=== PATIENT | male | born 1945 | race Caucasian/White ===

== ENCOUNTER 2017-05-17 21:58 | Inpatient (IN) | payer MEDICARE, OTHER ==
[~2017-05-17] VITALS: Ht 182.9 cm; Wt 79.5 kg
[2017-05-17] VITALS (10 sets, daily range): BP systolic 84–109; BP diastolic 52–78; PULSE 52–120; RESP 20–28; TEMP 95–95.7; O2SAT 91–100
[~2017-05-17 21:58] MED LIST: ACET325S8 PO; AUGM875T PO
[2017-05-17] MEDS ORDERED: SODIUM CHLOR 0.9% 1000 ML INJ 1,000 ML IV ONE (22:03)
[2017-05-17] MEDS ORDERED: NITROGLYCERIN 0.4 MG SL 25 TABS/BTL SL STA (22:03)
[2017-05-17] MEDS ORDERED: HEPARIN SODIUM - IV 10,000 UNITS/10 ML VIAL IV PUSH STA (22:03)
[2017-05-17] MEDS ORDERED: NITROGLYCERIN-D5W 50 MG/250 ML 250 ML IV PRN (22:15)
[2017-05-17] MEDS ORDERED: SODIUM CHLORIDE 0.9% FLUSH 10 ML FLUSH IVF PRN ×3 (22:15→22:30)
[2017-05-17] MEDS ORDERED: ASPIRIN 300 MG SUPP RECTAL ONE (22:15)
[2017-05-17] MEDS ORDERED: AMIODARONE INJ 150 MG in DEXTROSE 5% IN WATER 100ML INJ 100 ML IV ONE ×2 (22:23)
[2017-05-17 22:26] LABS: AUTOMATED NEUTROPHIL # 4.5 TH/MM3 (1.8-7.7); BASOPHIL # 0.1 TH/MM3 (0-0.2); BASOPHIL % 1.1 % (0.0-2.0); EOSINOPHIL % 0.5 % (0.0-4.0); HEMATOCRIT 38.5 % (39.0-51.0); LYMPH % 35.5 % (9.0-44.0); LYMPHOCYTE # 2.8 TH/MM3 (1.0-4.8); MEAN CELL VOLUME 95.1 FL (80.0-100.0); MEAN CORPUSCULAR HEMOGLOBIN 31.1 PG (27.0-34.0); MEAN CORPUSCULAR HGB CONC 32.7 % (32.0-36.0); MONO % 5.9 % (0.0-8.0); PLATELET COUNT 208 TH/MM3 (150-450); RED BLOOD COUNT 4.05 MIL/MM3 (4.50-5.90); WHITE BLOOD COUNT 7.9 TH/MM3 (4.0-11.0)
[2017-05-17 22:28] LABS: HEMO FLAGS AUTO DIFF
[2017-05-17] MEDS ORDERED: AMIODARONE INJ 450 MG in DEXTROSE 5% IN WATE(EXCEL) INJ 241 ML IV SCH ×2 (22:29)
[2017-05-17] MEDS ORDERED: LORazepam 2 MG/ML VIAL IV PUSH PRN (22:30)
[2017-05-17] MEDS ORDERED: RESP: ALBUTEROL 2.5 MG/IPRATROPIUM 0.5 MG NEB (PRN) INH (22:30)
[2017-05-17] MEDS ORDERED: MISCELLANEOUS NURSING INFORMATION XX SCH (22:30)
[2017-05-17] MEDS ORDERED: SODIUM CHLORIDE 0.9% FLUSH 10 ML FLUSH IV FLUSH PRN (22:30)
[2017-05-17] MEDS ORDERED: ONDANSETRON HCL 4 MG/2 ML VIAL IV PUSH PRN (22:30)
[2017-05-17] MEDS ORDERED: BISACODYL 10 MG SUPP RECTAL PRN (22:30)
[2017-05-17] MEDS ORDERED: LACTULOSE SYRUP 20 GM/30 ML CUP PO PRN (22:30)
[2017-05-17] MEDS ORDERED: ACETAMINOPHEN 325 MG TAB PO PRN (22:30)
[2017-05-17] MEDS ORDERED: MAGNESIUM HYDROXIDE SUSP 30 ML CUP PO PRN (22:30)
[2017-05-17] MEDS ORDERED: SENNOSIDES 8.6 MG TAB PO PRN (22:30)
[2017-05-17] MEDS ORDERED: CHLORHEXIDINE GLUCONATE 2 % 1 PACK (2 CLOTHS) TOP PRN (22:30)
--- NOTE | 2017-05-17 22:31 | HHI.HP ---
HPI Service Critical Care Medicine Primary Care Physician Unknown Admission Diagnosis Post Code, Vfib arrest Diagnosis: Travel History International Travel<30 Days: No Contact w/Intl Traveler <30 Da: No Traveled to Known Affected Are: No History of Present Illness 72 year old male who presents with a history of having a witnessed collapse. The patient was witnessed by a friend to collapse. He had been complaining of indigestion prior to this according to ambulance services. The patient's only known history according to ambulance services consists of COPD. Upon ambulance arrival the patient was noted to be in ventricular fibrillation. He was defibrillated twice, 300 mg of amiodarone was administered, epinephrine 1 mg IV was administered in 5 separate doses, and the patient was also given 1 amp of bicarbonate. The patient had a return of spontaneous circulation. With a blood pressure in the 60s systolic. The patient was started on a dopamine drip. The patient was intubated with a 7-1/2 endotracheal tube prior to arrival. The patient was noted to be starting to breathe above his assisted breathing as he arrives to the emergency department. During my examination patient had no purposeful movements, only myoclonic jerks suggesting severe anoxic brain injury. Due to poor neurological exam the decision was made to start post cardiac arrest therapeutic hypothermia. Shortly after placement cooling Catheter patients suffered another episode of ventricular tachycardia. At that time patient's nephew at the bedside talked over the phone to the patient's estranged son who designated him and his mother is a decision-maker. The patient's nephew and his mom was the patient's sister has expressed their wishes to proceed with a DNR order. Due to DNR status the hypothermia protocol was consult and the DNR order was placed on the chart. Review of Systems ROS Unable to obtain patient is comatose and intubated Past Family Social History Allergies: Coded Allergies: iodine (Unverified Allergy, Severe, ANAPHYLAXIS, 05/17/17) potassium iodide (Unverified Allergy, Severe, ANAPHYLAXIS, 05/17/17) povidone-iodine (Unverified Allergy, Severe, ANAPHYLAXIS, 05/17/17) sodium iodide (Unverified Allergy, Severe, ANAPHYLAXIS, 05/17/17) sodium iodide (Unverified Allergy, Severe, ANAPHYLAXIS, 05/17/17) Past Medical History Unobtainable Past Surgical History Unobtainable Reported Medications Unobtainable Active Ordered Medications Current Medications Medications (Trade) Dose Ordered Sig/Hui Route PRN Reason Start Time Stop Time Status Last Admin Dose Admin Nitroglycerin/ Dextrose 250 ml @ 3 mls/hr TITRATE PRN IV for angina or ST elevation 05/17/17 22:15 Amiodarone HCl 450 mg/Dextrose 250 ml @ 33.33 mls/ hr Q7H31M PRN IV Per Protocol 05/17/17 22:33 Sodium Chloride 1,000 ml @ 124 mls/hr Q8H4M IV 05/17/17 23:00 Sodium Chloride (NS Flush) 2 ml UNSCH PRN IV FLUSH FLUSH AFTER USING IV ACCESS 05/17/17 22:30 Sodium Chloride (NS Flush) 2 ml BID IV FLUSH 05/18/17 09:00 Acetaminophen (Tylenol) 650 mg Q6H PRN PO PAIN 1-10 AND/OR FEVER >101F 05/17/17 22:30 Pantoprazole Sodium (Protonix Inj) 40 mg DAILY IV PUSH 05/18/17 09:00 Lorazepam (Ativan Inj) 1 mg Q1H PRN IV PUSH Agitation/Sedation 05/17/17 22:30 Artificial Tears (Tears Naturale Opth Soln) 1 drop TID EACH EYE 05/18/17 09:00 Ondansetron HCl (Zofran Inj) 4 mg Q6H PRN IV PUSH NAUSEA OR VOMITING 05/17/17 22:30 Albuterol/ Ipratropium (Duoneb Neb) 1 ampule Q6HR NEB INH 05/18/17 04:00 Albuterol/ Ipratropium (Duoneb Neb) 1 ampule Q2HR NEB PRN INH WHEEZING 05/17/17 22:30 Miscellaneous Information 1 Q361D XX 05/17/17 22:30 Chlorhexidine Gluconate (Chlorhexidine 2% Cloth) 3 pack Taper DAILY@04 TOP 05/18/17 04:00 05/14/18 03:59 Chlorhexidine Gluconate (Chlorhexidine 2% Cloth) 3 pack UNSCH PRN TOP HYGIENIC CARE 05/17/17 22:30 Senna/Docusate Sodium (Maribel-Colace) 1 tab BID PO 05/18/17 09:00 Magnesium Hydroxide (Milk Of Magnesia Liq) 30 ml Q12H PRN PO Mild constipation 05/17/17 22:30 Sennosides (Senokot) 17.2 mg Q12H PRN PO Moderate constipation 05/17/17 22:30 Bisacodyl (Dulcolax Supp) 10 mg DAILY PRN RECTAL SEVERE CONSITIPATION 05/17/17 22:30 Lactulose (Lactulose Liq) 30 ml DAILY PRN PO SEVERE CONSITIPATION 05/17/17 22:30 Chlorhexidine Gluconate (Peridex 0.12% Liq) 15 ml BID@08,20 MT 05/18/17 08:00 Midazolam HCl 100 ml @ 2 mls/hr TITRATE PRN IV SEDATION 05/17/17 22:30 05/17/17 22:46 Fentanyl Citrate 250 ml @ 5 mls/hr TITRATE PRN IV SEDATION 05/17/17 22:30 05/17/17 22:45 Heparin Sodium (Porcine) (Heparin Inj) 5,000 units UNSCH PRN IV PUSH APTT LESS THAN 25 05/18/17 05:30 Heparin Sodium (Porcine) (Heparin Inj) 2,500 units UNSCH PRN IV PUSH APTT 25 TO 39 05/18/17 05:30 Heparin Sodium/ Dextrose 250 ml @ 9 mls/hr TITRATE PRN IV Coagulation Management 05/17/17 23:30 05/18/17 00:32 Family History Unobtainable Social History Patient has 2 estranged children, he lives in [facility] close to his sister and her son. Unknown history of smoking, alcohol or illicit drug abuse Physical Exam Vital Signs Vital Signs Date Time Temp Pulse Resp B/P (MAP) Pulse Ox O2 Delivery O2 Flow Rate FiO2 05/17/17 22:22 95.0 117 20 98/67 (77) 100 Ventilator 100 05/17/17 22:22 100 24 100 Ventilator 100 05/17/17 22:13 20 100 Ventilator 100 05/17/17 22:12 100 Ventilator 100 05/17/17 22:06 52 20 84/52 (63) 100 Physical Exam GENERAL: Elderly-appearing male, sedated and intubated. SKIN: Warm and dry. HEAD: Normocephalic. EYES: No scleral icterus. No injection or drainage. NECK: Supple, trachea midline. No JVD or lymphadenopathy. CARDIOVASCULAR: Regular rate and rhythm without murmurs, gallops, or rubs. RESPIRATORY: Breath sounds equal bilaterally. No accessory muscle use. GASTROINTESTINAL: Abdomen soft, non-tender, nondistended. MUSCULOSKELETAL: No cyanosis, or edema. BACK: Nontender without obvious deformity. NEURO EXAM: GCS: 3 Mental Status: The patient is intermittently jerking on examination his upper extremities in a nonpurposeful way. Patient has a GCS of 3 Laboratory Laboratory Tests Test 05/17/17 22:05 05/17/17 22:25 White Blood Count 7.9 Red Blood Count 4.05 Hemoglobin 12.6 Hematocrit 38.5 Mean Corpuscular Volume 95.1 Mean Corpuscular Hemoglobin 31.1 Mean Corpuscular Hemoglobin Concent 32.7 Red Cell Distribution Width 14.0 Platelet Count 208 Mean Platelet Volume 7.8 Neutrophils (%) (Auto) 57.0 Lymphocytes (%) (Auto) 35.5 Monocytes (%) (Auto) 5.9 Eosinophils (%) (Auto) 0.5 Basophils (%) (Auto) 1.1 Neutrophils # (Auto) 4.5 Lymphocytes # (Auto) 2.8 Monocytes # (Auto) 0.5 Eosinophils # (Auto) 0.0 Basophils # (Auto) 0.1 CBC Comment AUTO DIFF Result Diagram: 05/17/172204 Imaging Last [address] 05/17/172213 Signed Impressions: Service Date/Time: Wednesday, May 17, 2017 22:59 - CONCLUSION: 1. No acute intracranial abnormality. 2. 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 Rod Clinton MD Chest X-Ray 05/17/172202 Signed Impressions: Service Date/Time: Wednesday, May 17, 2017 22:21 - CONCLUSION: 1. Interval intubation and placement of nasogastric tube. 2. The heart size remains at the upper limits of normal with no acute cardiac pulmonary disease. 3. The study is degraded by motion artifact. MD Diana Gillespiei VTE Risk Assessment Caprini VTE Risk Assessment: Mod/High Risk (score >= 2) Caprini Risk Assessment Model Point Value = 1 Point Value = 2 Point Value = 3 Point Value = 5 Age 41-60 Minor surgery BMI > 25 kg/m2 Swollen legs Varicose veins or History of unexplained or recurrent spontaneous Oral contraceptives or hormone replacement Sepsis (< 1 month) Serious lung disease, including pneumonia (< 1 month) Abnormal pulmonary function Acute myocardial infarction Congestive heart failure (< 1 month) History of inflammatory bowel disease Medical patient at bed rest Age 61-74 Arthroscopic surgery Major open surgery (> 45 min) Laparoscopic surgery (> 45 min) Malignancy Confined to bed (> 72 hours) Immobilizing plaster cast Central venous access Age >= 75 History of VTE Family history of VTE Factor V Leiden Prothrombin [id number] Lupus anticoagulant Anticardiolipin antibodies Elevated serum homocysteine Heparin-induced thrombocytopenia Other congenital or acquired thrombophilia Stroke (< 1 month) Elective arthroplasty Hip, pelvis, or leg fracture Acute spinal cord injury (< 1 month) Prophylaxis Regimen Total Risk Factor Score Risk Level Prophylaxis Regimen 0-1 Low Early ambulation 2 Moderate Order ONE of the following: *Sequential Compression Device (SCD) *Heparin 5000 units SQ BID 3-4 Higher Order ONE of the following medications: *Heparin 5000 units SQ TID *Enoxaparin/Lovenox 40 mg SQ daily (WT < 150 kg, CrCl > 30 mL/min) *Enoxaparin/Lovenox 30 mg SQ daily (WT < 150 kg, CrCl > 10-29 mL/min) *Enoxaparin/Lovenox 30 mg SQ BID (WT < 150 kg, CrCl > 30 mL/min) AND/OR *Sequential Compression Device (SCD) 5 or more Highest Order ONE of the following medications: *Heparin 5000 units SQ TID (Preferred with Epidurals) *Enoxaparin/Lovenox 40 mg SQ daily (WT < 150 kg, CrCl > 30 mL/min) *Enoxaparin/Lovenox 30 mg SQ daily (WT < 150 kg, CrCl > 10-29 mL/min) *Enoxaparin/Lovenox 30 mg SQ BID (WT < 150 kg, CrCl > 30 mL/min) AND *Sequential Compression Device (SCD) Assessment and Plan Assessment and Plan Respiratory failure - Intubated for an airway protection - No weaning until neurologically improved - No SBT's - Vent bundle - DuoNeb scheduled and when necessary Cardiac arrest - V. fib arrest - No hypothermia protocol due to DNR status - Cardiology following Dr. Lyons - Amiodarone drip and heparin drip Altered mental status - Most likely severe anoxic brain injury - EEG morning - Neurology consult - Supportive care DVT GI prophylaxis - Teds SCDs - Heparin drip - Pepcid Critical Care: The total critical care time was 35 minutes. Time to perform other separately billable procedures was not included in the critical care time. Cabrera Ford MD May 17, 2017 10:31 pm
[2017-05-17 22:33] LABS: BLOOD GAS BASE EXCESS -13.2 mmol/L (-2-2); BLOOD GAS CARBOXYHEMOGLOBIN 2.7 % (0-4); BLOOD GAS HCO3 14 mmol/L (22-26); BLOOD GAS O2 HGB SATURATION 95 % (90-100); BLOOD GAS OXYGEN CONTENT 16.3 Vol % (12.0-20.0); BLOOD GAS PCO2 44 mmHg (38-42); BLOOD GAS PO2 453 mmHG (61-120); BLOOD GAS TOTAL HGB 11.3 G/DL (12.0-16.0); CRITICAL VALUE YES; OXYGEN DEVICE VENTILATOR
[2017-05-17] MEDS ORDERED: AMIODARONE INJ 450 MG in DEXTROSE 5% IN WATE(EXCEL) INJ 241 ML IV PRN ×2 (22:33)
[2017-05-17 22:34] LABS: I-STAT POTASSIUM 4.5 MMOL/L (3.5-4.9); I-STAT SODIUM 135 MMOL/L (138-146)
[2017-05-17 22:34] LABS: DRAW SITE RT FEMORAL; FIO2 100 %; NUMBER OF ARTERIAL PUNCTURES 1; STAT YES
--- NOTE | 2017-05-17 22:37 | RADRPT ---
EXAM DATE/TIME: 05/17/2017 22:21 [facility] COMPARISON: CHEST SINGLE AP, March 31, 2016, 12:45. INDICATIONS : Chest pain. Patient found unresponsive. MEDICAL HISTORY : Unobtainable. SURGICAL HISTORY : Unobtainable. ENCOUNTER: Initial ACUITY: 1 day PAIN SCORE: Non-responsive. LOCATION: Bilateral chest FINDINGS: 2 AP supine portable views of the chest were obtained and demonstrate interval intubation with endotr acheal tube tip approximate 4 cm above the greta. A nasogastric tube has been placed and the tip is in the proximal to mid stomach. No confluent infiltrates or effusions are identified. The heart size is at the upper limits of normal. There is mild motion artifact. Overlying echocardiogram leads are p resent. The bony thorax is intact. CONCLUSION: 1. Interval intubation and placement of nasogastric tube. 2. The heart size remains at the upper limits of normal with no acute cardiac pulmonary disease. 3. The study is degraded by motion artifact. Patrick Lopez MD on May 17, 2017 at 22:34 Board Certified Radiologist. This report was verified electronically.
[2017-05-17] MEDS ORDERED: MIDAZOLAM HCL 5 MG/ML VIAL (1 ML) ONE (22:39)
[2017-05-17 22:43] LABS: INTERNATIONAL NORMALIZED RATIO 1.1 RATIO; PROTHROMBIN TIME - PATIENT 11.1 SEC (9.8-11.6)
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
[2017-05-17] MEDS: RESP: ALBUTEROL 2.5 MG/IPRATROPIUM 0.5 MG NEB (SCH) INH ×2 (22:45→22:46)
[2017-05-17] MEDS: fentaNYL DRIP 250 ML IV PRN (22:45)
[2017-05-17] MEDS ORDERED: MIDAZOLAM HCL 5 MG/5 ML VIAL IV PUSH ONE (22:45)
[2017-05-17] MEDS: MIDAZOLAM 100 MG/100 ML INJ 100 ML IV PRN (22:46)
[2017-05-17] MEDS: SODIUM CHLOR 0.9% 1000 ML INJ 1,000 ML IV SCH (23:00)
[2017-05-17] MEDS ORDERED: CALCIUM GLUCONATE INJ 1 GM in SODIUM CHLORIDE 0.9% INJ 100 ML IV ONE (23:00)
[2017-05-17] MEDS ORDERED: SODIUM BICARBONATE 8.4% INJ 50 MEQ/50 ML SYR IV PUSH ONE (23:00)
[2017-05-17] MEDS ORDERED: MAGNESIUM SULFATE 1 GM PREMIX 100 ML IV ONE (23:00)
[2017-05-17 23:06] LABS: ALCOHOL LESS THAN 3 MG/DL (0-5); CREATINE KINASE 367 U/L (39-308)
[2017-05-17 23:11] LABS: BANDS 2 % (0-6); METAMYELOCYTES 1 % (0-1); NEUTROPHIL # MANUAL DIFF 4.6 TH/MM3 (1.8-7.7); PLATELET ESTIMATE SMEAR NORMAL (NORMAL); POLYS (SEG NEUTROPHILS) 53 % (16-70); PROMYELOCYTES 2 % (0-0); WBC DIFF SAMPLE 100
[2017-05-17 23:12] LABS: PLATELET MORPHOLOGY NORMAL (NORMAL); SCAN/DIFF FINAL DIFF MANUAL
[2017-05-17 23:27] LABS: CALCIUM-PROTEIN CORRECTED 8.2 MG/DL (8.5-10.1); CKMB 13.2 NG/ML (0.5-3.6)
--- NOTE | 2017-05-17 23:28 | RADRPT ---
EXAM DATE/TIME: 05/17/2017 22:59 [facility] COMPARISON: CT BRAIN W/O CONTRAST, March 31, 2016, 12:58. INDICATIONS : Altered mental status., stemi alert. RADIATION DOSE: 49.68 CTDIvol (mGy) MEDICAL HISTORY : Non-responsive. SURGICAL HISTORY : Non-responsive. ENCOUNTER: Initial ACUITY: 1 day PAIN SCALE: Non-responsive LOCATION: cranial TECHNIQUE: Multiple contiguous axial images were obtained of the head. Using automated exposure control and adj ustment of the mA and/or kV according to patient size, radiation dose was kept as low as reasonably a chievable to obtain optimal diagnostic quality images. DICOM format image data is available electro nically for review and comparison. FINDINGS: CEREBRUM: The ventricles are normal for age. No evidence of midline shift, mass lesion, hemorrhage or acute in farction. No extra-axial fluid collections are seen. Tiny old lacunar infarct involving the posterio r limb of the right internal capsule/lateral aspect of the right thalamus. POSTERIOR FOSSA: The cerebellum and brainstem are intact. The 4th ventricle is midline. The cerebellopontine angle i s unremarkable. EXTRACRANIAL: The visualized portion of the orbits is intact. SKULL: The calvaria is intact. No evidence of skull fracture. CONCLUSION: 1. No acute intracranial abnormality. 2. 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 Rod Clinton MD on May 17, 2017 at 23:24 Board Certified Radiologist. This report was verified electronically.
[2017-05-17] MEDS ORDERED: HEPARIN-D5W 25,000 U/250 ML 250 ML IV PRN (23:30)
[2017-05-18] VITALS (36 sets, daily range): BP systolic 77–115; BP diastolic 46–64; PULSE 87–170; RESP 16–22; TEMP 98.3–104.5; O2SAT 90–98
[2017-05-18] MEDS: RESP: ALBUTEROL 2.5 MG/IPRATROPIUM 0.5 MG NEB (SCH) INH ×4 (03:25→22:00)
[2017-05-18 03:57] LABS: AUTOMATED NEUTROPHIL # 13.9 TH/MM3 (1.8-7.7); BASOPHIL % 0.3 % (0.0-2.0); EOSINOPHIL % 0.1 % (0.0-4.0); HEMATOCRIT 37.8 % (39.0-51.0); HEMO FLAGS DIFF FINAL; LYMPHOCYTE # 0.8 TH/MM3 (1.0-4.8); MEAN CELL VOLUME 91.5 FL (80.0-100.0); MEAN CORPUSCULAR HGB CONC 33.9 % (32.0-36.0); MONO % 5.8 % (0.0-8.0); NEUT % 88.8 % (16.0-70.0); PLATELET COUNT 229 TH/MM3 (150-450); RED BLOOD COUNT 4.13 MIL/MM3 (4.50-5.90); WHITE BLOOD COUNT 15.6 TH/MM3 (4.0-11.0)
[2017-05-18] MEDS ORDERED: CHLORHEXIDINE GLUCONATE 2 % 1 PACK (2 CLOTHS) TOP SCH (04:00)
[2017-05-18] MEDS ORDERED: TERBUTALINE INJ 1 MG/ML AMP SQ PRN ×2 (04:15→07:00)
[2017-05-18 04:17] LABS: BLOOD GAS BASE EXCESS -4.5 mmol/L (-2-2); BLOOD GAS CARBOXYHEMOGLOBIN 0.9 % (0-4); BLOOD GAS HCO3 21 mmol/L (22-26); BLOOD GAS METHEMOGLOBIN 1.5 % (0-2); BLOOD GAS O2 HGB SATURATION 95 % (90-100); BLOOD GAS OXYGEN CONTENT 16.2 Vol % (12.0-20.0); BLOOD GAS PCO2 41 mmHg (38-42); BLOOD GAS PO2 131 mmHg (61-120); TEMP CORR TO 98.6
[2017-05-18 04:18] LABS: CRITICAL VALUE NO; DRAW SITE ART LINE; FIO2 50 %; OXYGEN DEVICE VENTILATOR; STAT NO; VENT SETTINGS 16/550/IT0.9/5PEEP
[2017-05-18] MEDS: DOPamine INJ PREMIX 500 ML IV PRN ×2 (04:32→17:16)
[2017-05-18 04:34] LABS: BICARBONATE 25.1 MEQ/L (21.0-32.0); CALCIUM-PROTEIN CORRECTED 7.8 MG/DL (8.5-10.1); MAGNESIUM 1.7 MG/DL (1.5-2.5); POTASSIUM 3.9 MEQ/L (3.5-5.1); TOTAL BILIRUBIN ADULT 0.4 MG/DL (0.2-1.0)
[2017-05-18] MEDS ORDERED: HEPARIN SODIUM - IV 10,000 UNITS/10 ML VIAL IV PUSH PRN ×2 (05:30)
--- NOTE | 2017-05-18 05:31 | RADRPT ---
EXAM DATE/TIME: 05/18/2017 04:14 [facility] COMPARISON: CHEST SINGLE AP, May 17, 2017, 22:21. INDICATIONS : Shortness of breath. MEDICAL HISTORY : Unobtainable. SURGICAL HISTORY : Unobtainable. ENCOUNTER: Subsequent ACUITY: 2 days PAIN SCORE: Non-responsive. LOCATION: Bilateral chest FINDINGS: A single view of the chest demonstrates the lungs to be symmetrically aerated without evidence of mas s, infiltrate or effusion. The patient remains intubated with the endotracheal tube tip approximately 5 cm above the greta. The nasogastric tube remains in place. The cardiomediastinal contours are un remarkable. Osseous structures are intact. CONCLUSION: No significant change. No acute cardiopulmonary disease. Patrick Lopez MD on May 18, 2017 at 5:28 Board Certified Radiologist. This report was verified electronically.
[2017-05-18 06:55] LABS: APTT (PATIENT) 118.5 SEC (24.3-30.1)
[2017-05-18] MEDS ORDERED: LORazepam 2 MG/ML VIAL ONE (06:59)
[2017-05-18] MEDS: SODIUM CHLOR 0.9% 1000 ML INJ 1,000 ML IV SCH ×2 (07:04→15:39)
[2017-05-18] MEDS: NOREPINEPHRINE-DEXTROSE DRIP 250 ML IV PRN ×2 (07:11→18:42)
[2017-05-18] MEDS: levETIRAcetam INJ 100 ML IV SCH ×2 (08:01→19:42)
[2017-05-18] MEDS: CHLORHEXIDINE 0.12% (ORAL KIT) 15 ML CUP MT SCH ×2 (08:02→19:43)
[2017-05-18] MEDS: DOCUSATE SODIUM 50 MG/SENNA 8.6 MG TAB PO SCH ×2 (08:02→19:42)
[2017-05-18] MEDS: ARTIFICIAL TEARS OPTH SOLN 15 ML BTL EACH EYE SCH ×3 (08:03→17:47)
[2017-05-18] MEDS: SODIUM CHLORIDE 0.9% FLUSH 10 ML FLUSH IV FLUSH SCH ×2 (08:03→19:43)
[2017-05-18] MEDS: MIDAZOLAM 100 MG/100 ML INJ 100 ML IV PRN ×2 (08:08→20:10)
[2017-05-18] MEDS ORDERED: SODIUM CHLORIDE 0.9% IV ONE (08:44)
[2017-05-18] MEDS ORDERED: PHENOBARBITAL IV ONE (08:44)
[2017-05-18] MEDS ORDERED: LORazepam 2 MG/ML VIAL IV PUSH PRN (08:45)
[2017-05-18] MEDS ORDERED: PANTOPRAZOLE SODIUM 40 MG VIAL IV PUSH SCH (09:00)
--- NOTE | 2017-05-18 09:06 | MB ---
cc: VICK MARLEY M.D. DATE OF CONSULTATION 05/18/2017 REASON FOR CONSULTATION Evaluation of post arrest. HISTORY OF PRESENT ILLNESS Lalo Will is a 72-year-old man who witnessed collapsed and was found to be in V-fib. He did not come back after initial defibrillation and ended up receiving five doses of epinephrine before he eventually had recovery of circulation. He is showing signs of being severely anoxic currently having myoclonic jerks. 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 He is on high doses of IV dopamine, IV Levophed as well as heparin and amiodarone. He has required recurrent shocks since he has been here. At this point, the patient is being supported until the remainder of the family comes at which time it is expected therapy will likely be withdrawn. ALLERGIES INCLUDE IODINE. PAST MEDICAL HISTORY I cannot obtain any of his past history in his current mental state. PHYSICAL EXAM Physical exam shows an elderly man currently intubated. He is having frequent myoclonic jerks. HEENT: Exam is unremarkable. NECK: Shows no JVD. CARDIAC: Exam shows S1-S2 that are soft, regular rate and rhythm. No murmurs or gallops. ABDOMEN: Soft and nontender. EXTREMITIES: Reveal diminished pedal pulses and no peripheral edema. NEUROLOGIC: He is comatose. Telemetry currently is showing sinus tachycardia. EKG in the chart shows what appears to be an A. fib rhythm with a right bundle-branch block and pronounced ST depression in the anterior leads. IMPRESSION Status post VF arrest in cardiogenic shock. Not showing signs of neurological recovery, currently a full DNR. PLAN I will see as needed. If his aorta shows some neurological recovery, then we would consider a cardiac catheterization, but at this point sounds at least he is probably terminal. MD NAPOLEON Borja/JAK /8:21 AM /8:51 AM
[2017-05-18] MEDS: VALPROATE INJ 500 MG in SODIUM CHLORIDE 0.9% INJ 100 ML IV SCH ×3 (09:09→20:10)
--- NOTE | 2017-05-18 10:25 | EKG ---
Date Performed: 05/17/2017 Time Performed: 22:02:05 PTAGE: 72 years EKG: ATRIAL FIBRILLATION INDETERMINATE AXIS RIGHT BUNDLE BRANCH BLOCK MARKED ST DEPRESSION ABNOR MAL ECG NO PREVIOUS TRACING DOCTOR: Mohsen Stock Interpretating Date/Time 05/18/2017 10:24:14
--- NOTE | 2017-05-18 12:45 | ECHRPT ---
Indication: CORONARY ATHEROSCLEROSIS CONCLUSIONS Normal left ventricular size. Wall thickness is normal. The left ventricular systolic function is low normal with an estimated ejection fraction in the rang e of 50- 55%. The left atrial size is megj-dr-mfbxickmmw dilated. The right atrial size is qfnn-lx-vpijnkmask dilated. Semij-yh-kixp mitral valve regurgitation. There is trace tricuspid valve regurgitation. The estimated pulmonary arterial pressure is 39.2 mmHg. BP: 80 / 55 HR: 106 Rhythm: Sinus MEASUREMENTS (Male / Female) Normal Values Technical Quality:Fair 2D ECHO LV Diastolic Diameter PLAX 5.6 cm 4.2 - 5.9 / 3.9 - 5.3 cm LV Systolic Diameter PLAX 5.2 cm IVS Diastolic Thickness 0.9 cm 0.6 - 1.0 / 0.6 - 0.9 cm LVPW Diastolic Thickness 1.0 cm 0.6 - 1.0 / 0.6 - 0.9 cm LV Relative Wall Thickness 0.3 LVOT Diameter 1.9 cm Aortic Root Diameter 3.3 cm LA Systolic Diameter LX 3.6 cm 3.0 - 4.0 / 2.7 - 3.8 cm DOPPLER AV Peak Velocity 120.0 cm/s AV Peak Gradient 5.8 mmHg AV Mean Gradient 4.0 mmHg AV Velocity Time Integral 15.2 cm LVOT Peak Velocity 56.4 cm/s LVOT Peak Gradient 1.3 mmHg LVOT Velocity Time Integral 6.8 cm LVOT Cardiac Index 1016.4 cm/minm AV Area Cont Eq vti 1.3 cm AV Area Cont Eq pk 1.3 cm Mitral E Point Velocity 44.9 cm/s Mitral A Point Velocity 46.9 cm/s Mitral E to A Ratio 1.0 LV E' Lateral Velocity 4.3 cm/s Mitral E to LV E' Lateral Ratio 10.5 LV E' Septal Velocity 8.0 cm/s Mitral E to LV E' Septal Ratio 5.6 TR Peak Velocity 270.0 cm/s TR Peak Gradient 29.2 mmHg Right Atrial Pressure 10.0 mmHg Pulmonary Artery Systolic Pressu 39.2 mmHg Right Ventricular Systolic Press 39.2 mmHg PV Peak Velocity 47.4 cm/s PV Peak Gradient 0.9 mmHg FINDINGS LEFT VENTRICLE Normal left ventricular size. Wall thickness is normal. The left ventricular systolic function is low normal with an estimated ejection fraction in the rang e of 50- 55%. RIGHT VENTRICLE Normal right ventricular size and systolic function. LEFT ATRIUM The left atrial size is xyqp-am-awpakvfkac dilated. RIGHT ATRIUM The right atrial size is yqet-sc-ldvtltkvks dilated. ATRIAL SEPTUM Normal atrial septal thickness without atrial level shunting by limited color doppler interrogation. AORTA The aortic root and proximal ascending aorta are normal in size on limited imaging. MITRAL VALVE Zjjhr-ak-qzcl mitral valve regurgitation. AORTIC VALVE Trileaflet aortic valve. No aortic valve stenosis or regurgitation. TRICUSPID VALVE There is trace tricuspid valve regurgitation. The estimated pulmonary arterial pressure is 39.2 mmHg. PULMONARY VALVE No pulmonary valve regurgitation or stenosis. VESSELS The inferior vena cava is normal in size. PERICARDIUM No pericardial effusion. Tommie Garcia MD, FACC (Electronically Signed) Final Date:18 May 2017 12:44
[2017-05-18 13:18] LABS: APTT (PATIENT) 25.2 SEC (24.3-30.1)
--- NOTE | 2017-05-18 13:42 | MG ---
cc: HOLDEN JACOB MD Lab No: Date: 05/18/2017 Age: Sex: M Race: DATE OF [address] Ford. MEDICAL HISTORY COPD, witnessed collapse, went into ventricular fibrillation, defibrillated twice, blood pressure 60s systolic. MEDICATIONS 1. Norepinephrine. 2. Protonix. 3. Ativan. 4. Dopamine. 5. Heparin. 6. Amiodarone. 7. Fentanyl. 8. Versed. 9. Valproic acid. 10. Phenobarbital. 11. Keppra. DESCRIPTION The patient is intubated, sedated with Versed at 10 mg and fentanyl at 250 mcg. At the beginning of the EEG the sedation was on, then sedation was turned off 4 minutes into the EEG. This is a low voltage slow EEG. Hyperventilation was omitted. Photic stimulation did not elicit a driving response. There were no electrographic seizures or epileptiform discharges noted. INTERPRETATION EEG recording is a low yield read; Reveals a low-voltage and slowing likely related to medication effects. A follow up EEG is recommended when the patient is off sedation. In this recording there were no epileptiform discharges or electrographic seizures/ictal activity noted. Clinical recommendation. MD LUISANA Coley/MEGAN /1:13 PM /1:30 PM MTDSam
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
[2017-05-18] MEDS: fentaNYL DRIP 250 ML IV PRN ×2 (17:19→23:05)
--- NOTE | 2017-05-18 19:22 | HHI.CCPN ---
Subjective Remarks/Hospital Course 05/17: 72 year old male who presents with a history of having a witnessed collapse. The patient was witnessed by a friend to collapse. He had been complaining of indigestion prior to this according to ambulance services. The patient's only known history according to ambulance services consists of COPD. Upon ambulance arrival the patient was noted to be in ventricular fibrillation. He was defibrillated twice, 300 mg of amiodarone was administered, epinephrine 1 mg IV was administered in 5 separate doses, and the patient was also given 1 amp of bicarbonate. The patient had a return of spontaneous circulation. With a blood pressure in the 60s systolic. The patient was started on a dopamine drip. The patient was intubated with a 7-1/2 endotracheal tube prior to arrival. The patient was noted to be starting to breathe above his assisted breathing as he arrives to the emergency department. During my examination patient had no purposeful movements, only myoclonic jerks suggesting severe anoxic brain injury. Due to poor neurological exam the decision was made to start post cardiac arrest therapeutic hypothermia. Shortly after placement cooling Catheter patients suffered another episode of ventricular tachycardia. At that time patient's nephew at the bedside talked over the phone to the patient's estranged son who designated him and his mother is a decision-maker. The patient's nephew and his mom was the patient's sister has expressed their wishes to proceed with a DNR order. Due to DNR status the hypothermia protocol was cancelled and the DNR order was placed on the chart. 05/18: Remains sedated, orally intubated on mechanical ventilation has had multiple myoclonic seizures this morning and was sedated with Versed as well as Ativan when necessary as well as phenobarb. Appears to have suffered severe anoxic brain injury. Hypotensive on pressors. Family does not want aggressive care and are waiting for arrival of patient's children to decide regarding transition to comfort measures eventually in view of poor prognosis. Objective Vital Signs Date Time Temp Pulse Resp B/P (MAP) Pulse Ox O2 Delivery O2 Flow Rate FiO2 05/18/17 18:42 121 102/54 05/18/17 16:00 99.8 16 96 05/18/17 13:01 50 05/17/17 23:28 Ventilator Intake and Output 05/18/17 05/18/17 05/19/17 08:00 16:00 00:00 Intake Total 1742 ml 2569 ml Output Total 625 ml 700 ml Balance 1117 ml 1869 ml Result Diagram: 05/18/177 05/18/17336 Other Results 72 year old male who presents with a history of having a witnessed collapse. The patient was witnessed by a friend to collapse. He had been complaining of indigestion prior to this according to ambulance services. The patient's only known history according to ambulance services consists of COPD. Upon ambulance arrival the patient was noted to be in ventricular fibrillation. He was defibrillated twice, 300 mg of amiodarone was administered, epinephrine 1 mg IV was administered in 5 separate doses, and the patient was also given 1 amp of bicarbonate. The patient had a return of spontaneous circulation. With a blood pressure in the 60s systolic. The patient was started on a dopamine drip. The patient was intubated with a 7-1/2 endotracheal tube prior to arrival. The patient was noted to be starting to breathe above his assisted breathing as he arrives to the emergency department. During my examination patient had no purposeful movements, only myoclonic jerks suggesting severe anoxic brain injury. Due to poor neurological exam the decision was made to start post cardiac arrest therapeutic hypothermia. Shortly after placement cooling Catheter patients suffered another episode of ventricular tachycardia. At that time patient's nephew at the bedside talked over the phone to the patient's estranged son who designated him and his mother is a decision-maker. The patient's nephew and his mom was the patient's sister has expressed their wishes to proceed with a DNR order. Due to DNR status the hypothermia protocol was consult and the DNR order was placed on the chart. Imaging Last [address] 05/17/172213 Signed Impressions: Service Date/Time: Wednesday, May 17, 2017 22:59 - CONCLUSION: 1. No acute intracranial abnormality. 2. 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 Rod Clinton MD Chest X-Ray 05/17/172202 Signed Impressions: Service Date/Time: Wednesday, May 17, 2017 22:21 - CONCLUSION: 1. Interval intubation and placement of nasogastric tube. 2. The heart size remains at the upper limits of normal with no acute cardiac pulmonary disease. 3. The study is degraded by motion artifact. Patrick Lopez MD Objective Remarks GENERAL: Elderly-appearing male, sedated and intubated. SKIN: Warm and dry. HEAD: Normocephalic. EYES: No scleral icterus. No injection or drainage. NECK: Supple, trachea midline. No JVD or lymphadenopathy. CARDIOVASCULAR: Regular rate and rhythm without murmurs, gallops, or rubs. RESPIRATORY: Breath sounds equal bilaterally. No accessory muscle use. GASTROINTESTINAL: Abdomen soft, non-tender, nondistended. MUSCULOSKELETAL: No cyanosis, or edema. BACK: Nontender without obvious deformity. NEURO EXAM: GCS: 3 Mental Status: The patient is intermittently jerking on examination his upper extremities in a nonpurposeful way. Patient has a GCS of 3 A/P Assessment and Plan Respiratory failure - Intubated for an airway protection - No weaning until neurologically improved - No SBT's - Vent bundle - DuoNeb scheduled and when necessary Cardiac arrest - V. fib arrest - No hypothermia protocol due to DNR status - Cardiology following Dr. Lyons - Amiodarone drip and heparin drip Encephalopathy Myoclonic seizures - Most consistent with severe anoxic brain injury - EEG was done after administration of phenobarb -Continue Versed drip, fentanyl drip as needed. Ativan when necessary. Added Keppra and valproic acid in view of significant myoclonic seizure activity despite Versed drip. DVT GI prophylaxis - Teds SCDs - Heparin drip - Pepcid Prognosis appears extremely poor with severe anoxic brain injury. Discussed with patient's nephew who is an EMT. Family is aware regarding poor prognosis and are awaiting arrival of patient's children and eventually are considering transition to comfort measures. Palliative care team consulted. Discussed with palliative care. Critical Care: The total critical care time was 45 minutes. Time to perform other separately billable procedures was not included in the critical care time. Jj Mckay MD May 18, 2017 19:22
[2017-05-18 22:14] LABS: APTT (PATIENT) 31.5 SEC (24.3-30.1)
[2017-05-19] VITALS: BP 57/41; PULSE 110; RESP 16; TEMP 103; O2SAT 95
[2017-05-19] MEDS ORDERED: LORazepam 2 MG/ML VIAL IV PUSH PRN (00:30)
[2017-05-19] MEDS ORDERED: MORPHINE SULFATE 4 MG/ML INJ IV PUSH PRN (00:30)
[2017-05-19] MEDS ORDERED: MORPHINE SULFATE 4 MG/ML INJ IV PUSH ONE (00:30)
== END 2017-05-19 01:01 | disposition expired | DRG 208 ==
LOC: NEPE 21:58 → NEDA 22:25 → HIME 23:15
PROVIDERS: ADMIT Internal Medicine Critical Care Medicine; ATTEND Internal Medicine Critical Care Medicine
PROC: 5A1935Z Respiratory Ventilation, Less than 24 Consecutive Hours (ICD-10-PCS; principal; 2017-05-17)
DX: J96.90 Respiratory failure, unspecified, unspecified whether with hypoxia or hypercapnia (principal); I49.01 Ventricular fibrillation; R57.0 Cardiogenic shock; G93.1 Anoxic brain damage, not elsewhere classified; Z51.5 Encounter for palliative care; I95.9 Hypotension, unspecified; R56.9 Unspecified convulsions; Z99.81 Dependence on supplemental oxygen; J44.9 Chronic obstructive pulmonary disease, unspecified; G25.3 Myoclonus; R40.2432 Glasgow coma scale score 3-8, at arrival to emergency department; I45.10 Unspecified right bundle-branch block; Y90.0 Blood alcohol level of less than 20 mg/100 ml; F10.10 Alcohol abuse, uncomplicated; Z66 Do not resuscitate
CPT/HCPCS: 36556; 36600; 70450; 71010; 80053; 80307; 82310; 82435; 82550; 82552; 82565; 82805; 82947; 83605; 83735; 83880; 84100; 84132; 84155; 84295; 84484; 84520; 85007; 85025; 85027; 85610; 85730; 87641; 93005; 93306; 94002; 94003; 94640; 94664; 94770; 95819; 99291; C9113; J0282; J0610; J1265; J1644; J1953; J2060; J2250; J2270; J2560; J3010; J3475; J7030; J7060